=== PATIENT | female | born 1990 | race Caucasian/White ===

== ENCOUNTER 2021-08-04 10:14 | Inpatient (IN) | payer MEDICAID ==
[~2021-08-04] VITALS: Ht 172.7 cm; Wt 53.1 kg
[2021-08-04 14:00] VITALS: BP 104/65
[2021-08-04 16:09] VITALS: BP 126/80
[2021-08-04] MEDS ORDERED: MAG HYDROX/AL HYDROX/SIMETH ES 30 ML SUSPENSION UDCUP PO PRN (19:00)
[2021-08-04] MEDS ORDERED: BENZOCAINE/MENTHOL LOZENGE PO PRN (19:00)
[2021-08-04] MEDS ORDERED: PETROLATUM,WHITE 28 GM JELLY TP PRN (19:00)
[2021-08-04] MEDS ORDERED: CloNIDine HCL 0.1 MG TABLET PO PRN (19:00)
[2021-08-04] MEDS ORDERED: BACITRACIN 28 GM OINTMENT TP PRN (19:00)
[2021-08-04] MEDS ORDERED: IBUPROFEN 600 MG TABLET PO PRN (19:00)
[2021-08-04] MEDS ORDERED: LOPERAMIDE HCL 2 MG CAPSULE PO PRN (19:00)
[2021-08-04] MEDS ORDERED: ALBUTEROL SULFATE HFA 90 MCG/PUFF 8 GM INHALER IH PRN (19:00)
[2021-08-04] MEDS ORDERED: ONDANSETRON HCL 4 MG TABLET PO PRN (19:00)
[2021-08-04] MEDS ORDERED: MAGNESIUM HYDROXIDE SUSPENSION 30 ML UDCUP PO PRN (19:00)
[2021-08-04] MEDS ORDERED: ACETAMINOPHEN 325 MG TABLET PO PRN (19:00)
[2021-08-05] MEDS ORDERED: DOCUSATE SODIUM 100 MG CAPSULE PO PRN (06:00)
[2021-08-05] MEDS ORDERED: MAG HYDROX/AL HYDROX/SIMETH ES 30 ML SUSPENSION UDCUP PO PRN (06:00)
[2021-08-05] MEDS ORDERED: CloNIDine HCL 0.1 MG TABLET PO PRN (06:00)
[2021-08-05] MEDS ORDERED: MAGNESIUM HYDROXIDE SUSPENSION 30 ML UDCUP PO PRN (06:00)
[2021-08-05] MEDS ORDERED: LOPERAMIDE HCL 2 MG CAPSULE PO PRN (06:00)
[2021-08-05] MEDS ORDERED: PETROLATUM,WHITE 28 GM JELLY TP PRN (06:00)
[2021-08-05] MEDS ORDERED: ALBUTEROL SULFATE HFA 90 MCG/PUFF 8 GM INHALER IH PRN (06:00)
[2021-08-05] MEDS ORDERED: GuaiFENesin/D-METHORPHAN [SUGAR-FREE] 200-20MG/10 ML SYRUP UDCUP PO PRN (06:00)
[2021-08-05] MEDS ORDERED: ONDANSETRON HCL 4 MG TABLET PO PRN (06:00)
[2021-08-05 06:29] VITALS: BP 122/79
[2021-08-05 07:27] LABS: BASOPHILS % (AUTO) 0.3 % (0.0-2.0); EOSINOPHILS % (AUTO) 2.1 % (1.0-6.0); HEMATOCRIT 38.1 % (36-46); LYMPHOCYTES # (AUTO) 1.2 K/uL (1.0-4.8); LYMPHOCYTES % (AUTO) 23.6 % (22.0-44.0); MEAN CORPUSCULAR HEMOGLOBIN 30.1 pg (26.0-34.0); MEAN CORPUSCULAR HGB CONC 34.1 G/dL (31.0-37.0); MEAN CORPUSCULAR VOLUME 88 fL (80-100); MONOCYTES # (AUTO) 0.7 K/uL (0.1-1.0); MONOCYTES % (AUTO) 13.1 % (2.0-9.0); NEUTROPHILS # (AUTO) 3.2 K/uL (1.8-7.7); NEUTROPHILS % (AUTO) 60.9 % (40.0-70.0); PLATELET COUNT (AUTO) 226 K/uL (150-450); RED BLOOD CELL COUNT(AUTO) 4.31 MIL/uL (4.00-5.20); RED CELL DISTRIBUTION WIDTH 13.3 % (11.5-14.5)
[2021-08-05 07:30] LABS: HEMOGLOBIN A1C 5.4 % (3.8-5.6)
[2021-08-05 07:55] LABS: ALANINE AMINOTRANSFERASE 47 U/L (12-78); ALBUMIN 3.2 g/dL (3.4-5.0); ALKALINE PHOSPHATASE 73 U/L (46-116); ANION GAP 5 mmol/L (8-16); ASPARTATE AMINOTRANSFERASE 25 U/L (15-37); BILIRUBIN,TOTAL 0.2 mg/dL (0.1-1.0); CALCIUM, TOTAL 8.7 mg/dL (8.8-10.5); CARBON DIOXIDE 30 mmol/L (22-29); CHLORIDE 102 mmol/L (98-107); CHOL/HDL RATIO 2.3 (3.9-5.7); CHOLESTEROL 164 mg/dL (131-200); CREATININE 0.64 mg/dL (0.60-1.30); FREE T4 (FREE THYROXINE) 0.81 ng/dL (0.76-1.46); GLUCOSE,RANDOM 89 mg/dL (70-110); HCG,QUANTITATIVE < 1 mIU/mL (0-6); HDL CHOLESTEROL 71 mg/dL (40-60); LDL CHOL (CALC.) 88 mg/dL (0-130); POTASSIUM 4.1 mmol/L (3.5-5.1); SODIUM SERUM 137 mmol/L (136-145); TOTAL PROTEIN, SERUM 6.6 g/dL (6.4-8.2); TRIGLYCERIDES 26 mg/dL (15-150); UREA NITROGEN, BLOOD 13 mg/dL (7-18)
[2021-08-05 07:56] LABS: GLOMERULAR FILTR. RATE CALC > 60 mL/min (>60)
[2021-08-05 08:09] VITALS: BP 92/56
[2021-08-05] MEDS: DOCUSATE SODIUM 100 MG CAPSULE PO SCH (08:27)
[2021-08-05] MEDS: OMEPRAZOLE 20 MG CAPSULE PO SCH (08:27)
[2021-08-05] MEDS: LORazepam 2 MG TABLET PO PRN (08:44)
[2021-08-05] MEDS: HALOPERIDOL 5 MG TABLET PO PRN (12:36)
[2021-08-05] MEDS: BusPIRone HCL 5 MG TABLET PO SCH ×2 (13:33→20:06)
[2021-08-05] MEDS: ESCITALOPRAM OXALATE 10 MG TABLET PO SCH (13:33)
[2021-08-05] MEDS: OLANZapine 5 MG TABLET PO SCH (20:06)
[2021-08-05 22:03] VITALS: BP 100/59
[2021-08-06 08:15] VITALS: BP 116/71
[2021-08-06] MEDS: ESCITALOPRAM OXALATE 10 MG TABLET PO SCH (09:25)
[2021-08-06] MEDS: DOCUSATE SODIUM 100 MG CAPSULE PO SCH (09:25)
[2021-08-06] MEDS: OLANZapine 5 MG TABLET PO SCH ×2 (09:25→20:31)
[2021-08-06] MEDS: OMEPRAZOLE 20 MG CAPSULE PO SCH (09:26)
[2021-08-06] MEDS: BusPIRone HCL 5 MG TABLET PO SCH ×2 (09:26→20:30)
[2021-08-06] MEDS: LORazepam 2 MG TABLET PO PRN (09:26)
[2021-08-06] MEDS: HALOPERIDOL 5 MG TABLET PO PRN (17:19)
[2021-08-07 01:21] VITALS: BP 109/60
[2021-08-07 08:10] VITALS: BP 103/68
[2021-08-07] MEDS: DOCUSATE SODIUM 100 MG CAPSULE PO SCH (08:10)
[2021-08-07] MEDS: BusPIRone HCL 5 MG TABLET PO SCH ×2 (08:10→20:37)
[2021-08-07] MEDS: OMEPRAZOLE 20 MG CAPSULE PO SCH (08:10)
[2021-08-07] MEDS: OLANZapine 5 MG TABLET PO SCH ×2 (08:10→20:37)
[2021-08-07] MEDS: ESCITALOPRAM OXALATE 10 MG TABLET PO SCH (08:10)
[2021-08-07] MEDS: LORazepam 2 MG TABLET PO PRN (11:56)
[2021-08-07] MEDS: HALOPERIDOL 5 MG TABLET PO PRN ×2 (11:56→17:09)
[2021-08-07 16:08] VITALS: BP 103/63
[2021-08-07] MEDS ORDERED: DICYCLOMINE HCL 10 MG CAPSULE PO PRN (16:15)
[2021-08-07] MEDS: ACETAMINOPHEN 325 MG TABLET PO PRN (17:09)
[2021-08-07 20:42] VITALS: BP 102/65
[2021-08-08 05:19] VITALS: BP 106/60
[2021-08-08 07:10] LABS: AMPHET/METH SCREEN,URINE NEGATIVE (NEGATIVE); BARBITURATE SCREEN, URINE NEGATIVE (NEGATIVE); BENZODIAZEPINES SCREEN,URINE NEGATIVE (NEGATIVE); CANNABINOID SCREEN,URINE NEGATIVE (NEGATIVE); COCAINE SCREEN,URINE NEGATIVE (NEGATIVE); METHADONE SCREEN, URINE NEGATIVE (NEGATIVE); OPIATE SCREEN,URINE NEGATIVE (NEGATIVE)
[2021-08-08 07:17] LABS: PHENCYCLIDINE SCREEN,URINE NEGATIVE (NEGATIVE)
[2021-08-08 08:03] LABS: BILIRUBIN,URINE NEGATIVE (NEGATIVE); GLUCOSE, URINE (UA) NEGATIVE (NEGATIVE); KETONES,URINE NEGATIVE (NEGATIVE); LEUKOCYTE ESTERASE ,URINE MODERATE (NEGATIVE); NITRATE,URINE NEGATIVE (NEGATIVE); OCCULT BLOOD,URINE NEGATIVE (NEGATIVE); PH,URINE 6.5 (5.0-8.0); PROTEIN,URINE NEGATIVE (NEGATIVE); SPECIFIC GRAVITIY, URINE 1.022 (1.003-1.030); UROBILINOGEN,URINE <=1.0 mg/dL (<=1.0)
[2021-08-08 08:06] LABS: APPEARANCE,URINE HAZY (CLEAR)
[2021-08-08 08:11] LABS: BACTERIA,URINE Moderate /HPF (None Seen); RBC,URINE None Seen /HPF (0-2); SQUAMOUS EPITHELIAL CELL,UR Many /LPF (None Seen)
[2021-08-08 08:12] LABS: CALCIUM OXALATE CRYSTALS,UR Moderate /LPF (None Seen)
[2021-08-08 08:14] VITALS: BP 110/69
[2021-08-08] MEDS: DOCUSATE SODIUM 100 MG CAPSULE PO SCH (08:19)
[2021-08-08] MEDS: ESCITALOPRAM OXALATE 10 MG TABLET PO SCH (08:19)
[2021-08-08] MEDS: OMEPRAZOLE 20 MG CAPSULE PO SCH (08:19)
[2021-08-08] MEDS: OLANZapine 5 MG TABLET PO SCH ×2 (08:20→20:09)
[2021-08-08] MEDS: BusPIRone HCL 5 MG TABLET PO SCH ×2 (08:20→20:09)
[2021-08-08] MEDS: LORazepam 2 MG TABLET PO PRN ×2 (08:49→15:40)
[2021-08-08] MEDS: HALOPERIDOL 5 MG TABLET PO PRN ×2 (09:23→15:35)
[2021-08-08] MEDS: ACETAMINOPHEN 325 MG TABLET PO PRN (15:40)
[2021-08-08 15:41] VITALS: BP 118/66
[2021-08-08] MEDS: ZOLPIDEM TARTRATE 10 MG TABLET PO PRN (20:09)
[2021-08-08 20:14] VITALS: BP 118/66
[2021-08-09 07:00] VITALS: BP 117/65
[2021-08-09] MEDS: LORazepam 2 MG TABLET PO PRN ×3 (07:05→16:32)
[2021-08-09] MEDS: HALOPERIDOL 5 MG TABLET PO PRN ×3 (07:05→16:32)
[2021-08-09] MEDS: OLANZapine 5 MG TABLET PO SCH ×2 (08:37→20:44)
[2021-08-09] MEDS: ESCITALOPRAM OXALATE 10 MG TABLET PO SCH (08:37)
[2021-08-09] MEDS: DOCUSATE SODIUM 100 MG CAPSULE PO SCH (08:37)
[2021-08-09] MEDS: OMEPRAZOLE 20 MG CAPSULE PO SCH (08:37)
[2021-08-09] MEDS: BusPIRone HCL 5 MG TABLET PO SCH ×2 (08:37→20:44)
[2021-08-09 12:25] VITALS: BP 116/74
[2021-08-09] MEDS: ACETAMINOPHEN 325 MG TABLET PO PRN (13:32)
[2021-08-09 20:20] VITALS: BP 108/64
[2021-08-10] MEDS: LORazepam 2 MG TABLET PO PRN ×3 (03:08→14:05)
[2021-08-10 05:24] VITALS: BP 108/62
[2021-08-10] MEDS: OLANZapine 5 MG TABLET PO SCH (07:54)
[2021-08-10] MEDS: DOCUSATE SODIUM 100 MG CAPSULE PO SCH (07:54)
[2021-08-10] MEDS: OMEPRAZOLE 20 MG CAPSULE PO SCH (07:54)
[2021-08-10] MEDS: BusPIRone HCL 5 MG TABLET PO SCH ×2 (07:54→20:40)
[2021-08-10] MEDS: ESCITALOPRAM OXALATE 10 MG TABLET PO SCH (07:55)
[2021-08-10 08:04] VITALS: BP 118/72
[2021-08-10] MEDS: NICOTINE 14 MG/24 HOUR PATCH TD PRN (08:45)
[2021-08-10] MEDS: HALOPERIDOL 5 MG TABLET PO PRN ×2 (08:47→14:48)
[2021-08-10] MEDS: IBUPROFEN 400 MG TABLET PO PRN (08:47)
[2021-08-10 20:02] VITALS: BP 125/74
[2021-08-10] MEDS: OLANZapine 7.5 MG TABLET PO SCH (20:40)
[2021-08-11] MEDS: ZOLPIDEM TARTRATE 10 MG TABLET PO PRN (00:27)
[2021-08-11 00:59] VITALS: BP 124/78
[2021-08-11 08:05] VITALS: BP 118/60
[2021-08-11] MEDS: BusPIRone HCL 5 MG TABLET PO SCH ×2 (08:25→21:12)
[2021-08-11] MEDS: OLANZapine 7.5 MG TABLET PO SCH ×2 (08:26→21:12)
[2021-08-11] MEDS: ESCITALOPRAM OXALATE 10 MG TABLET PO SCH (08:26)
[2021-08-11] MEDS: DOCUSATE SODIUM 100 MG CAPSULE PO SCH (08:26)
[2021-08-11] MEDS: OMEPRAZOLE 20 MG CAPSULE PO SCH (08:26)
[2021-08-11] MEDS: LORazepam 2 MG TABLET PO PRN ×2 (08:32→13:57)
[2021-08-11] MEDS ORDERED: MULTIVITAMINS WITH MINERALS, THERAPEUTIC TABLET PO ONE (09:00)
[2021-08-11] MEDS: HALOPERIDOL 5 MG TABLET PO PRN ×2 (09:07→13:57)
[2021-08-11] MEDS: ACETAMINOPHEN 325 MG TABLET PO PRN (09:11)
[2021-08-11 10:20] LABS: GLUCOMETER DEV NAME(LOC) POC.BV
[2021-08-11] MEDS: IBUPROFEN 400 MG TABLET PO PRN (14:59)
[2021-08-11 15:59] VITALS: BP 117/69
[2021-08-11 20:27] VITALS: BP 104/69
[2021-08-12 08:09] VITALS: BP 110/68
[2021-08-12] MEDS: OMEPRAZOLE 20 MG CAPSULE PO SCH (08:13)
[2021-08-12] MEDS: BusPIRone HCL 5 MG TABLET PO SCH (08:13)
[2021-08-12] MEDS: ESCITALOPRAM OXALATE 10 MG TABLET PO SCH (08:13)
[2021-08-12] MEDS: OLANZapine 7.5 MG TABLET PO SCH ×2 (08:13→20:07)
[2021-08-12] MEDS: DOCUSATE SODIUM 100 MG CAPSULE PO SCH (08:13)
[2021-08-12] MEDS: LORazepam 2 MG TABLET PO PRN ×2 (08:19→13:58)
[2021-08-12] MEDS: HALOPERIDOL 5 MG TABLET PO PRN ×3 (08:48→20:07)
[2021-08-12] MEDS: NICOTINE 14 MG/24 HOUR PATCH TD PRN (08:48)
[2021-08-12] MEDS ORDERED: BusPIRone HCL 5 MG TABLET PO SCH (09:15)
[2021-08-12] MEDS: BusPIRone HCL 10 MG TABLET PO SCH (16:09)
[2021-08-12] MEDS: ZOLPIDEM TARTRATE 10 MG TABLET PO PRN (20:07)
[2021-08-12 20:52] VITALS: BP 110/68
[2021-08-13] MEDS: ESCITALOPRAM OXALATE 10 MG TABLET PO SCH (08:20)
[2021-08-13] MEDS: OMEPRAZOLE 20 MG CAPSULE PO SCH (08:20)
[2021-08-13] MEDS: BusPIRone HCL 10 MG TABLET PO SCH ×2 (08:20→16:03)
[2021-08-13] MEDS: DOCUSATE SODIUM 100 MG CAPSULE PO SCH (08:20)
[2021-08-13] MEDS: OLANZapine 7.5 MG TABLET PO SCH ×2 (08:20→20:06)
[2021-08-13 09:05] VITALS: BP 111/63
[2021-08-13] MEDS: ACETAMINOPHEN 325 MG TABLET PO PRN ×2 (09:48→16:02)
[2021-08-13 16:00] VITALS: BP 105/61
[2021-08-13] MEDS: HALOPERIDOL 5 MG TABLET PO PRN (16:02)
[2021-08-13] MEDS: ZOLPIDEM TARTRATE 10 MG TABLET PO PRN (20:06)
[2021-08-13 22:06] VITALS: BP 109/66
[2021-08-14 04:58] VITALS: BP 110/72
[2021-08-14] MEDS: HALOPERIDOL 5 MG TABLET PO PRN ×3 (05:24→16:04)
[2021-08-14] MEDS: LORazepam 2 MG TABLET PO PRN ×2 (07:17→16:03)
[2021-08-14] MEDS: BusPIRone HCL 10 MG TABLET PO SCH ×2 (08:12→16:04)
[2021-08-14] MEDS: OLANZapine 7.5 MG TABLET PO SCH ×2 (08:12→20:05)
[2021-08-14] MEDS: OMEPRAZOLE 20 MG CAPSULE PO SCH (08:12)
[2021-08-14] MEDS: DOCUSATE SODIUM 100 MG CAPSULE PO SCH (08:13)
[2021-08-14] MEDS: ESCITALOPRAM OXALATE 10 MG TABLET PO SCH (08:15)
[2021-08-14 10:00] VITALS: BP 100/60
[2021-08-14] MEDS: ZOLPIDEM TARTRATE 10 MG TABLET PO PRN (20:06)
[2021-08-15] MEDS: LORazepam 2 MG TABLET PO PRN ×2 (05:35→11:26)
[2021-08-15] MEDS: HALOPERIDOL 5 MG TABLET PO PRN ×2 (05:36→11:26)
[2021-08-15 05:43] VITALS: BP 113/69
[2021-08-15] MEDS: DOCUSATE SODIUM 100 MG CAPSULE PO SCH (09:25)
[2021-08-15] MEDS: OMEPRAZOLE 20 MG CAPSULE PO SCH (09:26)
[2021-08-15] MEDS: OLANZapine 7.5 MG TABLET PO SCH (09:26)
[2021-08-15] MEDS: ESCITALOPRAM OXALATE 10 MG TABLET PO SCH (09:27)
[2021-08-15] MEDS: BusPIRone HCL 10 MG TABLET PO SCH (09:27)
[2021-08-15 09:56] VITALS: BP 100/62
[2021-08-15] MEDS: NICOTINE 14 MG/24 HOUR PATCH TD PRN (10:14)
[2021-08-15] MEDS ORDERED: BUSP10TA23 PO (12:31)
[2021-08-15] MEDS ORDERED: OMEP20 PO (12:31)
[2021-08-15] MEDS ORDERED: OLAN7.5T22 PO (12:31)
[2021-08-15] MEDS ORDERED: ESCI10 PO (12:31)
== END 2021-08-15 14:55 | disposition home or self-care (01) | DRG 750 ==
LOC: B3A 13:20
PROVIDERS: ADMIT Psychiatry & Neurology Psychiatry; ATTEND Psychiatry & Neurology Psychiatry
DX: F25.0 Schizoaffective disorder, bipolar type (principal); E44.0 Moderate protein-calorie malnutrition; R45.851 Suicidal ideations; Z68.1 Body mass index [BMI] 19.9 or less, adult; F10.10 Alcohol abuse, uncomplicated; F15.10 Other stimulant abuse, uncomplicated; F41.9 Anxiety disorder, unspecified; K21.9 Gastro-esophageal reflux disease without esophagitis; Z20.822 Contact with and (suspected) exposure to COVID-19; Z59.00 Homelessness unspecified; Z79.899 Other long term (current) drug therapy
CPT/HCPCS: 80053; 80061; 80307; 81001; 83036; 84436; 84439; 84443; 84702; 85025; 86592; 87086; G0480